=== PATIENT | female | born 1985 | race Caucasian/White ===

== ENCOUNTER 2017-07-08 10:54 | Emergency (ER) | payer OTHER ==
[2017-07-08] MEDS ORDERED: Cyclobenzaprine TAB* 10 MG PO ONE (12:27)
[2017-07-08] MEDS ORDERED: HYDROcodone/ACETAMIN 5-325 MG* 1 TAB PO ONE (12:28)
--- NOTE | 2017-07-08 13:23 | RAD ---
INDICATION: Give chronic back pain. Scheduled for cortisone shot today. Lumbar pain with right leg radiation COMPARISON: None TECHNIQUE: Noncontrast axial source images was performed from the thoracolumbar junction to the sacrum. Coronal and and sagittal reformatted images were generated. FINDINGS: Vertebrae: There is no fracture or acute focal bony lesion. Alignment: The lumbar vertebrae are normally aligned. Central Canal: There are no significant CT abnormalities of the central canal or foramina. There is mild circumferential bulging at L4-L5 and L5-S1. MR imaging is a more sensitive method to evaluate the canal and foramina. Intervertebral disc spaces: The disc spaces are maintained. Soft tissues: The paravertebral soft tissues are normal. Other: None IMPRESSION: MILD CIRCUMFERENTIAL BULGING AT L4-L5 AND L5-S1. SUGGEST NONEMERGENT MR IMAGING CLINICALLY INDICATED.
--- NOTE | 2017-07-08 13:41 | RAD ---
Indication: Back pain. CT of the thoracic spine was obtained in the axial plane. Sagittal and coronal reconstructed images were obtained. Coronal and sagittal reconstructed images were obtained. The vertebral bodies appear normal in height. No fracture is noted. Spinal canal appears to be intact. Spinous processes and transverse processes are unremarkable. IMPRESSION: No fracture of the thoracic spine is noted.
--- NOTE | 2017-07-08 15:26 | ED ---
Back Pain - HPI Summary HPI Summary: Patient presents with acute on chronic back pain which has been present x 4 years, with worsening symptoms x 3 days. She notes to 10/10 pain throughout the lumbar spine radiating to the right thigh with numbness, tingling and weakness. She is currently being followed by pain clinic and PCP with cortisone injections in the right hip x 4 years with little improvement. She states she was on her way to the pain clinic for the injections, when the pain worsened and she felt she was unable to walk. She normally does not walk with assistance, but has been using her cane x 3 days. Notes to some bladder dysfunction including feeling like she is "leaking" periodically but denies symptoms of overflow. Denies bowel dysfunction. She is tender to the touch on palpation over the L2-S1 and throughout the leg. She is tearful on exam and states she is unable to walk, perform PE tests or lie flat. Pain is worse with lying flat and walking, better when on her right side. She denies temperature or color changes to her leg, but feels the lower extremity is swollen. She has been dx with degenerative disc disease as well as herniated discs, but she has not been a candidate for surgery for not yet failing outpatient cortisone injections. She is unable to see Dr. Ratliff d/t her current insurance. Her pain clinic has not attempted to place her on oral opioids or other pain management. Istop reveals nothing given for several months. Denies allergies to these medications. Ibuprofen daily at 2400mg total is not improving her symptoms. - History of Current Complaint Chief Complaint: EDExtremityLower Stated Complaint: RT LEG SWELLING/PAIN Time Seen by Provider: 07/08/17 11:25 Hx Obtained From: Patient Onset/Duration: Gradual Onset Onset/Duration: Atraumatic, Still Present Timing: Constant Back Pain Location: Is Discrete @ - lumbar spine radiating to the right leg Severity Initially: Severe Severity Currently: Severe Pain Intensity: 10 Pain Scale Used: 0-10 Numeric Character: Aching, Throbbing Aggravating Symptom(s): Movement, Lifting, Bending, Walking Alleviating Symptom(s): Rest Associated Signs And Symptoms: Positive: Tingling, Bladder Incontinence, Pain with Weight Bearing Related History: Similar Episode Dx As - lumbar radiculopathy - Risk Factors AAA Risk Factors: Negative TAD Risk Factors: Negative Cauda Equina Risk Factors: Bladder Dysfunction, Lower Extremity Weakness Epidural Abscess Risk Factors: Lower Extremity Weakness - Allergies/Home Medications Allergies/Adverse Reactions: Allergies Allergy/AdvReac Type Severity Reaction Status Date / Time Bupropion [From Wellbutrin] Allergy Hives Verified 07/08/17 12:03 Escitalopram [From Lexapro] Allergy Unknown Verified 07/08/17 12:03 Reaction Details Latex Allergy Edema Verified 07/08/17 12:03 Sertraline [From Zoloft] Allergy Airway Verified 07/08/17 12:03 Obstruction PMH/Surg Hx/FS Hx/Imm Hx Previously Healthy: Yes - Immunization History Hx Pertussis Vaccination: No Immunizations Up to Date: Unable to Obtain/Confirm Infectious Disease History: Yes Infectious Disease History: Denies: Traveled Outside the [place] in Last 30 Days - Social History Occupation: Employed Full-time Lives: Alone Alcohol Use: None Hx Substance Use: Yes Substance Use Type: Reports: Marijuana Hx Tobacco Use: Yes Smoking Status (MU): Current Every Day Smoker Review of Systems Constitutional: Negative Cardiovascular: Negative Respiratory: Negative Genitourinary: Negative Positive: see HPI, incontinence Positive: Arthralgia, Myalgia - right lumbar spine Skin: Negative Positive: Weakness All Other Systems Reviewed And Are Negative: Yes Physical Exam - Summary Physical Exam Summary: Thorough physical exam was performed, focusing on thoracic and lumbar special tests and ROM. Due to patient pain around injury, physical exam was limited. Limited ROM. Flip Test positive. Straight leg raise positive. Kernig test positive. Negative Babinksi. Hip flexion and extension, knee extension, dorsiflexion, great toe extension and plantar flexion unable to test d/t pain. Rotating at hips limited d/t pain. Nerve roots L4-S2 reflexes intact. L1-S2 nerve root sensory intact. No saddle anesthesia. Gait abnormal. After pain under control with 2 NORCO, weakness appreciated on the right lower extremity including plantar flexion, great toe extension and straight leg raise. Triage Information Reviewed: Yes Vital Signs On Initial Exam: Initial Vitals Temp Pulse Resp BP Pulse Ox 98.4 F 120 24 135/90 99 07/08/17 11:08 07/08/17 11:08 07/08/17 11:08 07/08/17 11:08 07/08/17 11:08 Vital Signs Reviewed: Yes Appearance: Positive: Well-Appearing, Well-Nourished Skin: Positive: Warm, Skin Color Reflects Adequate Perfusion Head/Face: Positive: Normal Head/Face Inspection Eyes: Positive: EOMI, JERMAINE, Conjunctiva Clear Neck: Positive: Supple, No Lymphadenopathy Respiratory/Lung Sounds: Positive: Clear to Auscultation, Breath Sounds Present Cardiovascular: Positive: Normal, RRR, Pulses are Symmetrical in both Upper and Lower Extremities Musculoskeletal: Positive: Limited @ - see above Neurological: Positive: Speech Normal Psychiatric: Positive: Normal Diagnostics - Vital Signs Vital Signs Temp Pulse Resp BP Pulse Ox 07/08/17 11:55 98.4 F 112 20 134/86 99 07/08/17 11:08 98.4 F 120 24 135/90 99 - Laboratory Lab Statement: Any lab studies that have been ordered have been reviewed, and results considered in the medical decision making process. Back Pain Course/Dx - Course Course Of Treatment: Thorough physical exam was performed, focusing on thoracic and lumbar special tests and ROM. Due to patient pain around injury, physical exam was limited. Limited ROM. Flip Test positive. Straight leg raise positive. Kernig test positive. Negative Babinksi. Hip flexion and extension, knee extension, dorsiflexion, great toe extension and plantar flexion unable to test d/t pain. Rotating at hips limited d/t pain. Nerve roots L4-S2 reflexes intact. L1-S2 nerve root sensory intact. No saddle anesthesia. Gait abnormal. Patient sent to CT scan which shows IMPRESSION: MILD CIRCUMFERENTIAL BULGING AT L4-L5 AND L5-S1. SUGGEST NONEMERGENT MR. IMAGING CLINICALLY INDICATED. Discussed with Dr. Jefferson who suggested testing reflexes and extremity weakness s/p pain control. Pain is under control at time of second physical exam with 2 NORCO, which indicates weakness appreciated on the right lower extremity including plantar flexion, great toe extension and straight leg raise. Patient also notes to intermittent bladder dysfunction x 2 months which includes leaking, but denies overflow symptoms. Discussed results with Dr. Jefferson who suggested MRI. Jenn from MRI who spoke with Dr. Moore called and spoke with provider to discuss the need for outpatient MRI, but no need for emergency ED MRI based on CT findings. Will have patient follow up with pain clinic and PCP for further workup and imaging. Will give Percoset x 3 days and Flexeril x 5 days. Patient made aware and is OK with plan. She is ambulating at discharge with the assistance of a cane. - Diagnoses Differential Diagnosis/HQI/PQRI: Positive: Cauda Equina Syndrome, Compressive Cord Syndrome, Herniated Disc Provider Diagnoses: Herniated disc Images - Images Full Body (No Head): 1 - pain on palpation Discharge - Discharge Plan Condition: Stable Disposition: HOME Prescriptions: Cyclobenzaprine TAB* [Flexeril TAB*] 10 mg PO BID PRN #10 tab PRN Reason: Pain oxyCODONE/Acetamin 10/325(NF) [Percocet 10/325 (NF)] 1 tab PO Q6H PRN #12 tab MDD 4 PRN Reason: Pain Patient Education Materials: Lumbar Disc Herniation (ED), Lumbar Radiculopathy (ED) Referrals: Non Staff,Doctor [Primary Care Provider] - Additional Instructions: Follow up with PCP and Pain control clinic Take ibuprofen 600mg three times daily for pain For pain not well controlled with ibuprofen, you may take the Percoset Flexeril is prescribed to you as well, only as needed for muscle spasms, up to twice daily Do not drive or operate machinery with these medications As discussed, you will likely need further imaging and further workup through pain clinic and PCP If you develop any bladder or bowel dysfunction, return to the ED immediately
[2017-07-08 15:41] VITALS: BP 129/76
== END 2017-07-08 15:40 | disposition home or self-care (01) ==
LOC: ED 10:54
DX: M51.27 Other intervertebral disc displacement, lumbosacral region (principal); F17.200 Nicotine dependence, unspecified, uncomplicated
CPT/HCPCS: 72128; 72131; 99282; A9270-GY

== ENCOUNTER 2019-08-26 09:34 | Emergency (ER) | payer OTHER ==
--- NOTE | 2019-08-26 09:57 | ED ---
Back Pain - HPI Summary HPI Summary: Pt is a 33 y/o F presenting to the ED for a chief complaint of right-sided lower back pain. Pt reports that on the morning of 08/26/19, pt slipped while cleaning suárez from her truck. Since the fall, pt has felt weakness, numbness, and pain in the right lower back that radiates down the right LE. Since the fall , pt has had difficulty ambulating due to the pain. Pt denies any fever, chills , erythema of eyes, sore throat, CP, SOB, cough, abdominal pain, N/V, dysuria, hematuria, bowel incontinence, urinary incontinence, edema, paresthesia of the bilateral LE, rash, or dizziness. Pt took oxycodone, duloxetine, and ibuprofen without relief. Pt takes oxycodone as needed, duloxetine, ibuprofen, naproxen, cyclobenzaprine, and previously took Tramadol for a PMHx of chronic back pain. Pt has a PSHx of frontal fusion performed on 12/30/18 in [place]. Pt sees Dr. Ratliff and Dr. Flores. Pt smokes ppd of tobacco and marijuana. Pt occasionally drinks alcohol. - History of Current Complaint Chief Complaint: EDBackInjuryPain Stated Complaint: LOWER BACK PAIN Time Seen by Provider: 08/26/19 09:41 Hx Obtained From: Patient Onset/Duration: Sudden Onset, Lasting Minutes, Still Present Onset/Duration: Started Minutes Ago, Still Present Timing: Constant, Lasting Minutes Severity Initially: Severe Severity Currently: Severe Pain Intensity: 10 Pain Scale Used: 0-10 Numeric Aggravating Symptom(s): Nothing Alleviating Symptom(s): Nothing Associated Signs And Symptoms: Positive: Weakness - Right LE, Numbness - Right LE. Negative: Swelling, Fever, Tingling, Abdominal Pain, Bladder Incontinence, Bowel Incontinence - Allergies/Home Medications Allergies/Adverse Reactions: Allergies Allergy/AdvReac Type Severity Reaction Status Date / Time bupropion [From Wellbutrin] Allergy Hives Verified 08/26/19 09:37 escitalopram [From Lexapro] Allergy Unknown Verified 08/26/19 09:37 Reaction Details latex Allergy Hives Verified 08/26/19 09:37 sertraline [From Zoloft] Allergy Hives Verified 08/26/19 09:37 Home Medications: Home Medications Albuterol HFA INHALER* [Ventolin HFA Inhaler*] 1 - 2 puff INH Q4H PRN 08/26/19 [ History Confirmed 08/26/19] Butalb/Acetaminophen/Caffeine [Bkwnvi-Wvzogjhf-Nrix 50-325-40] 1 each PO Q6HR [History Confirmed 08/26/19] Cyclobenzaprine TAB* [Flexeril 10 MG TAB*] 10 mg PO TID PRN 08/26/19 [History Confirmed 08/26/19] DULoxetine CAP* [Cymbalta CAP*] 60 mg PO BID 08/26/19 [History Confirmed ] Naproxen [Naproxen 500 mg tab] 500 mg PO Q12HR 08/26/19 [History Confirmed 08/26] Zonisamide (NF) [Zonegran (NF)] 150 mg PO BEDTIME 08/26/19 [History Confirmed ] busPIRone TAB* [Buspar TAB*] 5 mg PO BID 08/26/19 [History Confirmed 08/26/19] PMH/Surg Hx/FS Hx/Imm Hx Previously Healthy: Yes Endocrine/Hematology History: Denies: Hx Diabetes Cardiovascular History: Denies: Hx Hypertension Musculoskeletal History: Reports: Other Musculoskeletal History - Hx chronic back pain Sensory History: Denies: Hx Legally Blind, Hx Deafness EENT History: Denies: Hx Deafness - Surgical History Surgical History: Yes Surgery Procedure, Year, and Place: Frontal fusion 12/30/18 Infectious Disease History: No Infectious Disease History: Denies: Traveled Outside the [place] in Last 30 Days - Family History Known Family History: Negative: Cardiac Disease, Diabetes - Social History Occupation: Unemployed Lives: With Family Alcohol Use: None Hx Substance Use: Yes Substance Use Type: Reports: Marijuana Hx Tobacco Use: Yes Smoking Status (MU): Light Every Day Tobacco Smoker Type: Cigarettes Amount Used/How Often: 1/2 ppd Review of Systems Negative: Fever Negative: Erythema Negative: Sore Throat Negative: Chest Pain Negative: Shortness Of Breath, Cough Positive: Other - Negative bowel incontinence. Negative: Abdominal Pain, Vomiting, Nausea Negative: dysuria, hematuria, incontinence - Urinary Positive: Myalgia - Right side of back radiating down the right LE. Negative: Edema Neurological: Other - Negative dizziness Positive: Weakness - Right LE, Numbness - Right lower back radiating to the right LE. Negative: Paresthesia - Bilateral LE All Other Systems Reviewed And Are Negative: Yes Physical Exam - Summary Physical Exam Summary: Constitutional: Well-developed, Well-nourished, Alert. (-) Distressed Skin: Warm, Dry HENT: Normocephalic; Atraumatic Eyes: Conjunctiva normal Neck: Musculoskeletal ROM normal neck. (-) JVD, (-) Stridor, (-) Tracheal deviation Cardio: Rhythm regular, rate normal, Heart sounds normal; Intact distal pulses; The pedal pulses are 2+ and symmetric. Radial pulses are 2+ and symmetric. (-) Murmur Pulmonary/Chest wall: Effort normal. (-) Respiratory distress, (-) Wheezes, (-) Rales Abd: Soft, (-) tenderness, (-) Distension, (-) Guarding, (-) Rebound Musculoskeletal: (-) Edema.Right lower back pain with hip flexion, no bony tenderness, LE strength intact and hip ROM intact passively. Lymph: (-) Cervical adenopathy Neuro: Alert, Oriented x3 Psych: Mood and affect Normal Triage Information Reviewed: Yes Vital Signs On Initial Exam: Initial Vitals Temp Pulse Resp BP Pulse Ox 97 F 100 20 123/84 100 08/26/19 09:37 08/26/19 09:37 08/26/19 09:37 08/26/19 09:37 08/26/19 09:37 Vital Signs Reviewed: Yes Procedures - Sedation Patient Received Moderate/Deep Sedation with Procedure: No Diagnostics - Vital Signs Vital Signs Temp Pulse Resp BP Pulse Ox 08/26/19 09:37 97 F 100 20 123/84 100 - Laboratory Lab Statement: Any lab studies that have been ordered have been reviewed, and results considered in the medical decision making process. Back Pain Course/Dx - Course Course Of Treatment: Pt is a 33 y/o F presenting to the ED for a chief complaint of right-sided lower back pain. Pt reports that on the morning of , pt slipped while cleaning suárez from her truck. Since the fall, pt has felt weakness, numbness, and pain in the right lower back that radiates down the right LE. Since the fall, pt has had difficulty ambulating due to the pain. Pt denies any fever, chills, erythema of eyes, sore throat, CP, SOB, cough, abdominal pain, N/V, dysuria, hematuria, bowel incontinence, urinary incontinence, edema, paresthesia of the bilateral LE, rash, or dizziness. Pt took oxycodone, duloxetine, and ibuprofen without relief. Pt takes oxycodone as needed, duloxetine, ibuprofen, naproxen, cyclobenzaprine, and previously took Tramadol for a PMHx of chronic back pain. Pt has a PSHx of frontal fusion performed on 12/30/18 in [place]. Pt sees Dr. Ratliff and Dr. Flores. Pt smokes ppd of tobacco and marijuana. Pt occasionally drinks alcohol. On exam, right lower back pain with hip flexion, no bony tenderness, LE strength intact and hip ROM intact passively. No signs or symptoms of cauda equina syndrome. In the ED course, pt was given lidocaine 5% TRANSDERM, oxycodone 2 tab PO, and prednisone 60 mg PO. Pt will be discharged with a diagnosis of right hip strain and sciatica. Follow up with PCP in 2-3 days. - Diagnoses Provider Diagnoses: Sciatica, Lumbar strain Discharge ED - Sign-Out/Discharge Documenting (check all that apply): Patient Departure - Discharge - Discharge Plan Condition: Stable Disposition: HOME Prescriptions: Lidocaine PATCH 5%* [Lidoderm 5% Patch*] 1 patch TRANSDERM DAILY #14 patch oxyCODONE/Acetamin 5/325 MG* [Percocet 5/325 TAB*] 2 tab PO Q6H PRN #20 tab MDD 8 PRN Reason: Pain - Severe predniSONE TAB* [Deltasone TAB*] 50 mg PO DAILY #5 tab Patient Education Materials: Sciatica (ED) Forms: *Work Release Referrals: Kenrick Flores DO [Primary Care Provider] - Additional Instructions: Follow up with your primary care provider in 2-3 days. RETURN TO THE EMERGENCY DEPARTMENT FOR CHANGING OR WORSENING SYMPTOMS. - Billing Disposition and Condition Condition: STABLE Disposition: Home - Attestation Statements Document Initiated by Scribe: Yes Documenting Scribe: Norma Ramirez Provider For Whom Scribe is Documenting (Include Credential): Doyle Jefferson MD Scribe Attestation: Norma Oliva, scribed for Doyle Jefferson MD on 08/29/19 at 0726. Scribe Documentation Reviewed: Yes Provider Attestation: The documentation as recorded by the scribe, Norma Ramirez accurately reflects the service I personally performed and the decisions made by me, Doyle Jefferson MD Status of Scribe Document: Viewed
[2019-08-26] MEDS ORDERED: predniSONE TAB* 20 MG PO ONE (10:16)
[2019-08-26] MEDS ORDERED: oxyCODONE/Acetamin 5/325 MG* TAB PO ONE (10:16)
[2019-08-26] MEDS ORDERED: Lidocaine PATCH 5%* 1 PATCH TRANSDERM ONE (10:20)
[2019-08-26 11:16] VITALS: BP 114/88
[2019-08-26] MEDS ORDERED: Lidocaine Patch REMOVE* 1 NOTE MISC SCH (21:00)
== END 2019-08-26 11:16 | disposition home or self-care (01) ==
LOC: ED 09:34
DX: M54.40 Lumbago with sciatica, unspecified side (principal); F17.210 Nicotine dependence, cigarettes, uncomplicated; Z79.899 Other long term (current) drug therapy; Z88.8 Allergy status to other drugs, medicaments and biological substances; Z91.040 Latex allergy status
CPT/HCPCS: 99282; A9270-GY; J7512

== ENCOUNTER 2019-12-19 07:36 | Emergency (ER) | payer SELFPAY ==
--- NOTE | 2019-12-19 08:39 | ED ---
Head Injury - HPI Summary HPI Summary: Patient presents to urgent care with another brother. Patient's 34-year-old female who was at work at [employer] Patient states she was lifting something to clean when a register tape dispenser fell off of a high shelf from storage went on her head. Patient's sutures S her head. Patient states she did have a loss of consciousness but is not sure how long. Patient states initially she had nausea but at since resolved. No vomiting. No vision changes. No blood HEENT. No neck or back pain. Patient has not taken any thing for pain prior to arrival. Her girlfriend picked up and brought her here. Patient without any open wounds. no anticoagulants - History Of Current Complaint Chief Complaint: EDHeadInjury Stated Complaint: HEAD INJURY PER PT Time Seen by Provider: 12/19/19 07:46 Hx Obtained From: Patient Onset/Duration: Started Hours Ago Pain Intensity: 10 - Allergies/Home Medications Allergies/Adverse Reactions: Allergies Allergy/AdvReac Type Severity Reaction Status Date / Time bupropion [From Wellbutrin] Allergy Hives Verified 12/19/19 07:41 escitalopram [From Lexapro] Allergy Unknown Verified 12/19/19 07:41 Reaction Details latex Allergy Hives Verified 12/19/19 07:41 sertraline [From Zoloft] Allergy Hives Verified 12/19/19 07:41 Home Medications: Home Medications Tramadol HCl 50 mg PO BID 12/19/19 [History Confirmed 12/19/19] Zonisamide 150 mg PO BEDTIME 12/19/19 [History Confirmed 12/19/19] oxyCODONE/Acetamin 5/325 MG* [Percocet 5/325 TAB*] 1 tab PO Q6H PRN MDD 8 [History Confirmed 12/19/19] PMH/Surg Hx/FS Hx/Imm Hx Previously Healthy: Yes Endocrine/Hematology History: Denies: Hx Anticoagulant Therapy, Hx Diabetes Cardiovascular History: Denies: Hx Hypertension Musculoskeletal History: Reports: Other Musculoskeletal History - Hx chronic back pain Sensory History: Denies: Hx Legally Blind, Hx Deafness Opthamlomology History: Denies: Hx Legally Blind - Surgical History Surgical History: Yes Surgery Procedure, Year, and Place: Frontal fusion 12/30/18 Infectious Disease History: No Infectious Disease History: Denies: Traveled Outside the [place] in Last 30 Days - Family History Known Family History: Negative: Cardiac Disease, Diabetes - Social History Occupation: Employed Full-time Lives: With Family Alcohol Use: Occasionally Hx Substance Use: Yes Substance Use Type: Reports: Marijuana Substance Use Comment - Amount & Last Used: last used last night Hx Tobacco Use: Yes Smoking Status (MU): Heavy Every Day Tobacco Smoker Type: Cigarettes Amount Used/How Often: 1/2 ppd Review of Systems Constitutional: Negative Eyes: Negative Cardiovascular: Negative Respiratory: Negative Positive: Nausea Musculoskeletal: Negative Skin: Negative Positive: Headache Psychological: Normal All Other Systems Reviewed And Are Negative: Yes Physical Exam - Summary Physical Exam Summary: Vital Signs Reviewed: Yes A+Ox3, no distress Eyes: Conjunctiva Clear, JERMAINE. EOM intact and full, no photophobia ENT: Hearing grossly normal TM x 2 clear, mmoist, uvula midline, no exudate, no erythema Neck: Positive: Supple Respiratory: Positive: No respiratory distress, No accessory muscle use + CTA throughout no w/r Cardiovascular: RRR nl s1, s2 no m/r CBT <2 sec abd soft + BS nt/nd no guarding, no distension Musculoskeletal Exam: BRANNON x 4 without difficulty Strength Intact, ROM Intact Neurological: Positive: Alert, + sensation throughout CN 2- 12 intact and full Full AROM ext + FNF b/l Psychological: Positive: Normal Response To examiner Skin: Positive: no rash, no ecchymosis, left lateral scalp pt with small contusion - no open wounds, no crepitus Triage Information Reviewed: Yes Vital Signs On Initial Exam: Initial Vitals Temp Pulse Resp BP Pulse Ox 97.4 F 94 19 129/84 100 12/19/19 07:37 12/19/19 07:37 12/19/19 07:37 12/19/19 07:37 12/19/19 07:37 Procedures - Sedation Patient Received Moderate/Deep Sedation with Procedure: No Diagnostics - Vital Signs Vital Signs Temp Pulse Resp BP Pulse Ox 12/19/19 08:19 91 118/75 99 12/19/19 08:00 90 99 12/19/19 07:50 96 99 12/19/19 07:49 90 126/91 100 12/19/19 07:37 97.4 F 94 19 129/84 100 - Laboratory Lab Statement: Any lab studies that have been ordered have been reviewed, and results considered in the medical decision making process. - CT No standard instances CT Interpretation Completed By: Radiologist - Patient Name: TAO FRENCH Medical Record#: [id number] Ordering Physician: Ayana Garcia MD Acct.#: [id number] : 1985 Age: 34 Sex: F Location: EMERGENCY DEPARTMENT Exam Date: 12/19/19857 ADM Status: REG ER Order Information: CT BRAIN WO Accession Number: [id number] CPT: 43717 Indication: Headache. CT of the brain performed without IV contrast. Ventricular structures are midline. No midline shift is noted. The extra-axial spaces are unremarkable. There is no evidence of intracranial mass or hemorrhage. No other high or low density lesions are identified. Mastoid air cells and paranasal sinuses are unremarkable. IMPRESSION: No intracranial mass or hemorrhage. __ <Electronically signed by Corrina Boss MD in OV> 12/19/19942 Dictated By: Corrina Boss MD Dictated Date/Time: 12/19/19942 Transcribed Date/Time: 942 Copy to: CC:Ayana Garcia MD; Kenrick Flores DO [facility] [address] [address] ph ([phone]) ph ) ph ([phone]) This report is only to be considered final once signed by the Provider (s) as displayed in the "<Electronically Signed by >" field (s). Absence of a signature indicates the report is in a draft status and still needs to be finalized. In the event this document was created by someone other than the signing Provider, the individual initiating the document will be listed in the "Entered by:" or "Dictated by:" maxwell. 1 of 1 Re-Evaluation - Re-Evaluation Second Eval Comment: Repeat CT with patient. No acute process. Recommend patient apply ice. Motrin and Tylenol. Rest. Avoid screen time. Reviewed concussion symptoms. Patient fell with Dr. Giordano. Patient given note for work today and tomorrow. Questions asked and answered. Significant other to drive home. Head Injury Course/Dx Course Of Treatment: Patient presents to urgent care reporting left-sided headache after she was struck in the head with falling object at work. No patient states she did have a brief loss of consciousness. No blood in HEENT.. No neck or back pain. Patient with mild left-sided headache. Vital signs stable. No crepitus. Will check CT. Will give aspirin and ice. We'll reassess. Patient comfortable with the plan. - Diagnoses Provider Diagnoses: Scalp contusion, Closed head injury Discharge ED - Sign-Out/Discharge Documenting (check all that apply): Patient Departure - Discharge Plan Condition: Stable Disposition: HOME Patient Education Materials: Head Injury (ED), Scalp Contusion in Adults (ED) Forms: *Gen. Provider Communication, *Work Release Referrals: Herrera Lara MD [Medical Doctor] - Kenrick Flores DO [Primary Care Provider] - Additional Instructions: - STay well hydrated Drink plenty of non-alcoholic, non-caffinated beverages - Okay to alernate ibuprofen (Advil, Motrin) 600mg and Tylenol every 3hours for pain. Take with food - get plenty of restful sleep - Avoid screen time (TV, ipad, cell phone, computer) until you feeling better - contact Dr. Lara, occupational health specialist, to schedule a follow-up appointment since your injury occurred at work - Billing Disposition and Condition Condition: STABLE Disposition: Home
[2019-12-19] MEDS ORDERED: Acetaminophen TAB* 325 MG PO ONE (08:58)
[2019-12-19 10:33] VITALS: BP 138/89
== END 2019-12-19 10:33 | disposition home or self-care (01) ==
LOC: ED 07:36
DX: S00.03XA Contusion of scalp, initial encounter (principal); W20.8XXA Other cause of strike by thrown, projected or falling object, initial encounter; Y92.511 Restaurant or cafe as the place of occurrence of the external cause; Y99.0 Civilian activity done for income or pay; F17.210 Nicotine dependence, cigarettes, uncomplicated; Z79.899 Other long term (current) drug therapy; Z88.8 Allergy status to other drugs, medicaments and biological substances; Z91.040 Latex allergy status
CPT/HCPCS: 70450; 99283; A9270-GY